=== PATIENT | male | born 1960 | race Caucasian/White ===

== ENCOUNTER → 2017-12-27 | Outpatient (CLI) | payer OTHER ==
[~2017-12-27] MED LIST: MULT-820 PO
[2017-12-27 08:30] LABS: PLATELET COUNT, AUTOMATED 182 K/uL (150-450)
[2017-12-27 08:39] LABS: LDL CHOLESTEROL 70 mg/dl
== END ==
LOC: LAB 07:40
PROVIDERS: ATTEND Nurse Practitioner Family
DX: Z00.00 Encounter for general adult medical examination without abnormal findings (principal)
CPT/HCPCS: 36415; 82040; 82247; 82310; 82374; 82435; 82465; 82565; 82947; 83718; 84075; 84132; 84153; 84155; 84295; 84450; 84460; 84478; 84520; 85025